=== PATIENT | male | born 1990 | race Caucasian/White ===

== ENCOUNTER 2024-02-29 22:01 | Emergency (ER) | payer OTHER ==
[~2024-02-29] VITALS: Ht 185.4 cm; Wt 68.0 kg
[2024-02-29] MEDS ORDERED: KETOROLAC TROMETHAMINE 30 MG INJ ONE (22:34)
[2024-02-29] MEDS: KETOROLAC TROMETHAMINE 30 MG INJ IM ONE (22:43)
[2024-03-01] MEDS ORDERED: AMOXICILLIN-CLAVUL 875-125MG TABLET ONE (00:11)
[2024-03-01] MEDS ORDERED: HYDR-4209 PO (00:11)
[2024-03-01] MEDS ORDERED: AMOX-430 PO (00:11)
[2024-03-01] MEDS: AMOXICILLIN-CLAVUL 875-125MG TABLET PO ONE (00:12)
[2024-03-01 00:17] VITALS: BP 115/74; O2SAT 98
== END 2024-03-01 01:06 | disposition home or self-care (01) ==
LOC: ER 22:02
DX: L02.01 Cutaneous abscess of face (principal); K04.7 Periapical abscess without sinus; J01.00 Acute maxillary sinusitis, unspecified; F17.200 Nicotine dependence, unspecified, uncomplicated; Z79.899 Other long term (current) drug therapy; Z79.891 Long term (current) use of opiate analgesic
CPT/HCPCS: 99285; 70486; 96372; J1885; A4606; A4663